=== PATIENT | female | born 1970 | race Caucasian/White ===

== ENCOUNTER 2022-04-13 07:17 | Observation (INO) | payer BC ==
[~2022-04-13 07:17] MED LIST: Sensorcaine 0.25% 10 ML ONE
[2022-04-13] MEDS ORDERED: PITRESSIN 20 UNITS IJ ONE (07:19)
[2022-04-13] MEDS ORDERED: Lactated Ringers 1,000 ML IV ONE ×3 (07:41→10:53)
[2022-04-13] MEDS ORDERED: CEFAZOLIN 2 GM-D5W BAG** 2 GM/50 ML ML IV ONE (07:41)
[2022-04-13] MEDS ORDERED: CEFAZOLIN 2 GM-D5W BAG** 2 GM/50 ML ML IV SCH (08:00)
[2022-04-13] MEDS ORDERED: Lactated Ringers 1,000 ML IV SCH (08:00)
[2022-04-13 08:13] LABS: Absolute Neutrophil Ct (ANC) 3.05 x10^3/uL (1.4-6.9); BASOPHIL % 0.6 % (0.0-0.4); Basophil (Absolute #) 0.04 x10^3/uL (0-0.4); Eosinophil % 1.3 % (0.00-5.0); Eosinophil (Absolute #) 0.08 x10^3/uL (0-0.5); Hemoglobin 13.1 g/dL (12.0-16.0); IMMATURE GRAN # 0.01 x10^3u/L (0.00-0.03); IMMATURE GRAN % 0.2 % (0.00-0.4); Lymphocyte (Absolute #) 2.31 x10^3/uL (1.0-4.6); Lymphocytes % 36.9 % (24.0-44.0); Mean Cell Volume 87.9 fL (78-100); Mean Corpuscular Hemoglobin 28.8 pg (26-32); Mean Corpuscular Hgb Concent. 32.8 g/dL (32-36); Mean Platelet Volume 10.2 fL (7.5-11.0); Monocyte (Absolute #) 0.77 x10^3/uL (0.0-1.3); Monocytes % 12.3 % (0.0-12.0); Neutrophil % 48.7 % (36.0-66.0); Platelet Count 317 x10^3/uL (150-450); Red Blood Count 4.55 x10^6/uL (4.1-5.4); Red Cell Distribution Width 13.4 % (11.5-14.0); White Blood Count 6.3 x10^3/uL (4.0-10.5)
[2022-04-13 08:23] LABS: ALBUMIN 4.6 g/dL (3.5-5.0); ALKALINE PHOSPHATASE 59 U/L (38-126); ANION GAP 11.9 MEQ/L (5-15); BLOOD UREA NITROGEN 24 mg/dL (7-17); CHLORIDE 108 mmol/L (98-107); Calcium 8.9 mg/dL (8.4-10.2); Carbon Dioxide 26 mmol/L (22-30); Creatinine 1 0.67 mg/dL (0.52-1.04); EST GLOMERULAR FILTRATION RATE > 60.0 ML/MIN; Glucose 104 mg/dL (74-106); Potassium 3.7 mmol/L (3.5-5.1); SGOT/AST 47 U/L (14-36); SGPT/ALT 41 U/L (0-35); SODIUM 142 mmol/L (137-145); Total Protein 8.6 g/dL (6.3-8.2)
[2022-04-13] MEDS ORDERED: Zemuron 100 MG/10 ML ONE (08:41)
[2022-04-13] MEDS ORDERED: Zofran 4 MG/2 ML VIAL ONE (08:41)
[2022-04-13] MEDS ORDERED: DIPRIVAN 200 MG/20 ML IV ONE (08:41)
[2022-04-13] MEDS ORDERED: Decadron 4 MG INJ ONE (08:41)
[2022-04-13] MEDS ORDERED: SUBLIMAZE 100 MCG/2 ML ONE (08:41)
[2022-04-13] MEDS ORDERED: TORAdol 30 mg Injection ONE (08:41)
[2022-04-13] MEDS ORDERED: BRIDION 200MG/2ML IV ONE (08:41)
[2022-04-13] MEDS ORDERED: Xylocaine-Mpf 2% 5 Ml Vial ONE (08:41)
[2022-04-13] MEDS ORDERED: Versed 2 MG/2 ML Injection ONE (08:41)
[2022-04-13 08:45] LABS: INFLUENZA A NEGATIVE (NEGATIVE); INFLUENZA B NEGATIVE (NEGATIVE); RESPIRATORY SYNCTIAL VIRUS NEGATIVE (Negative); SARS-CoV-2 Xpert Express NEGATIVE (NEGATIVE)
[2022-04-13] MEDS ORDERED: Sodium Chloride 0.9% 100 ML ONE (08:45)
[2022-04-13] MEDS ORDERED: Magnesium Sulfate 1 GM/2 ML VIAL ONE (08:47)
[2022-04-13] MEDS ORDERED: OFIRMEV 100 ML IV ONE (08:48)
[2022-04-13] MEDS ORDERED: Astramorph-Pf 5 MG/10 ML ONE (08:49)
[2022-04-13 08:50] LABS: ABO TYPING B; Antibody Screen NEGATIVE (NEGATIVE); RH TYPING POSITIVE
[2022-04-13] MEDS ORDERED: PHENYLEPHRINE HCL ONE (09:15)
[2022-04-13] MEDS ORDERED: Ketamine HCl 50 MG/ML ONE (09:26)
[2022-04-13] MEDS ORDERED: Ephedrine Sulfate 50 MG/ML ONE (09:32)
[2022-04-13] MEDS ORDERED: XYLOCAINE 1%/Epi 1:100000 MDV 20 ML ONE (09:33)
[2022-04-13] MEDS ORDERED: Zofran 4 MG/2 ML VIAL IV PRN ×2 (13:44→19:30)
[2022-04-13] MEDS ORDERED: TORAdol 30 mg Injection IV PRN (13:46)
[2022-04-13] MEDS ORDERED: MEDICATION INTERVENTION MC SCH (14:00)
[2022-04-13] MEDS: CEFAZOLIN 2 GM-D5W BAG** 2 GM/50 ML ML IV SCH ×2 (14:12→22:38)
[2022-04-13] MEDS: hydroDIURIL 25 MG PO SCH (14:14)
[2022-04-13] MEDS: Mylicon 80MG PO SCH ×2 (14:14→22:38)
[2022-04-13] MEDS: Zestril 20 MG PO SCH (14:14)
[2022-04-13] MEDS: Docusate Sodium 100 MG PO SCH ×2 (14:14→22:38)
[2022-04-13] MEDS: Reglan 10 MG/2 ML IV SCH ×2 (14:15→22:39)
[2022-04-13 14:39] LABS: Appearance Clear (Clear); Bacteria None Seen /HPF (None Seen); Bilirubin Negative (Negative); Blood Moderate (Negative); Epithelial Cells Rare /HPF (None Seen); Glucose, Urine Negative (Negative); Ketones Negative (Negative); Leukocyte Esterase Negative (Negative); Nitrite Negative (Negative); Ph 5.5 (4.6-8.0); Protein,Urine Dip Trace (Negative); Specific Gravity 1.025 (1.005-1.030); Urobilinogen 0.2 mg/dL (0.2)
--- NOTE | 2022-04-13 16:24 | XRAY ---
Indication: Status post hysterectomy. Ureteral patency. Multiple contiguous axial images obtained through the abdomen and pelvis using 80 cc Isovue 370 contrast. Comparison: None Lung bases demonstrates mild dependent atelectasis. Heart not enlarged. Abdominal wall demonstrates mild diffuse subcutaneous emphysema presumably related to recent surgery. No focal abdominal wall mass or abnormal fluid collection. Stomach is mildly fluid distended. Noncontrasted stomach and bowel loops appear nonobstructed. Mild diffuse scattered colonic fecal debris throughout including rectum. Hysterectomy with small postoperative pelvic free fluid/tiny free air. Urinary bladder demonstrates Thacker balloon catheter in situ with small intraluminal air. Delayed images are negative for abnormal contrast extravasation. Incidental fatty liver with a few tiny hepatic/splenic calcified granulomas. Gallbladder moderately distended without gallstones. Remaining liver, gallbladder, pancreas, spleen, adrenal glands, kidneys, ureters, and bladder are unremarkable. Minimal aortoiliac calcifications. No AAA or pathological retroperitoneal lymphadenopathy. Osseous structures intact with minimal generative changes throughout the spine. Impression: 1. Postoperative changes related to hysterectomy including diffuse abdominal subcutaneous emphysema, small pelvic free fluid, and tiny intra-abdominal air. 2. Both ureters are normal in course and caliber without abnormal extravasation. 3. Incidental mild diffuse fecal stasis, distended gallbladder, fatty liver, and old granulomatous disease.
[2022-04-13 18:20] LABS: Hematocrit 31.1 % (35-47); Hemoglobin 10.3 g/dL (12.0-16.0); Mean Cell Volume 89.1 fL (78-100); Mean Corpuscular Hemoglobin 29.5 pg (26-32); Mean Corpuscular Hgb Concent. 33.1 g/dL (32-36); Mean Platelet Volume 10.1 fL (7.5-11.0); Platelet Count 287 x10^3/uL (150-450); Red Blood Count 3.49 x10^6/uL (4.1-5.4); Red Cell Distribution Width 13.5 % (11.5-14.0); White Blood Count 16.8 x10^3/uL (4.0-10.5)
[2022-04-13] MEDS: Lactated Ringers 1,000 ML IV SCH (18:28)
[2022-04-13] MEDS ORDERED: Zofran 4 MG/2 ML VIAL IV STA (19:27)
[2022-04-14] MEDS: Lactated Ringers 1,000 ML IV SCH (02:37)
[2022-04-14 05:21] LABS: Hematocrit 28.5 % (35-47); Hemoglobin 9.2 g/dL (12.0-16.0); Mean Cell Volume 89.6 fL (78-100); Mean Corpuscular Hemoglobin 28.9 pg (26-32); Mean Corpuscular Hgb Concent. 32.3 g/dL (32-36); Mean Platelet Volume 10.2 fL (7.5-11.0); Platelet Count 288 x10^3/uL (150-450); Red Blood Count 3.18 x10^6/uL (4.1-5.4); Red Cell Distribution Width 13.5 % (11.5-14.0); White Blood Count 10.5 x10^3/uL (4.0-10.5)
[2022-04-14] MEDS: Reglan 10 MG/2 ML IV SCH (05:23)
[2022-04-14] MEDS: Mylicon 80MG PO SCH (05:23)
[2022-04-14 06:25] LABS: ALBUMIN 3.3 g/dL (3.5-5.0); ALKALINE PHOSPHATASE 45 U/L (38-126); ANION GAP 8.3 MEQ/L (5-15); BLOOD UREA NITROGEN 16 mg/dL (7-17); CHLORIDE 103 mmol/L (98-107); Calcium 8.1 mg/dL (8.4-10.2); Carbon Dioxide 30 mmol/L (22-30); Creatinine 1 0.65 mg/dL (0.52-1.04); EST GLOMERULAR FILTRATION RATE > 60.0 ML/MIN; Glucose 111 mg/dL (74-106); Potassium 3.7 mmol/L (3.5-5.1); SGOT/AST 24 U/L (14-36); SGPT/ALT 27 U/L (0-35); SODIUM 138 mmol/L (137-145); Total Protein 6.3 g/dL (6.3-8.2)
--- NOTE | 2022-04-14 07:45 | PCM.NOTE ---
Date and Time: 04/14/22743 Subjective Assessment: pod 1 sp lavh pt resting in bed and doing well. able to ambulate and tolerate diet. vss afebrile abd; soft incision c/d/intact pelvic; vaginal packing removed with minimal soiling hgb; 9.2 stable a/p sp lavh pod 1 dc home today should fu in office in 2 wks OBJECTIVE DATA Vital Signs: Vital Signs - 24 hr Temp Pulse Resp BP Pulse Ox 04/14/22 07:15 97.2 F 71 17 113/61 100 04/14/22 06:57 100 04/14/22 04:00 97.6 F 53 L 18 106/57 100 04/13/22 23:40 98.1 F 60 16 101/58 99 04/13/22 15:24 98.7 F 72 17 138/76 96 04/13/22 15:23 98.6 F 77 16 142/73 97 04/13/22 14:42 96 04/13/22 14:15 98.6 F 77 16 142/73 97 04/13/22 14:00 98.7 F 69 15 149/87 97 04/13/22 13:35 98.6 F 70 16 145/75 98 04/13/22 13:20 98.6 F 88 16 143/91 98 04/13/22 13:00 98.6 F 70 16 138/76 98 04/13/22 12:30 98.6 F 94 H 16 152/90 99 04/13/22 12:15 98.7 F 83 16 139/84 93 L 04/13/22 12:00 98.7 F 73 16 149/87 98 04/13/22 08:07 97.7 F 79 18 134/83 97 04/13/22 07:50 97.7 F 79 18 134/83 97 Pain Assessment - Last Documented Pain Intensity 0 Pain Scale Used 0-10 Pain Scale Intake and Output: Intake & Output 04/11/22 04/12/22 04/13/22 04/14/22 11:59 11:59 11:59 11:59 Intake Total 4176 Output Total 2250 Balance 1926 Weight 74.5 kg 74.5 kg Lab Results: Lab Results-Last 24 Hours 04/13/22 04/13/22 04/13/22 Range/Units 07:58 07:58 07:58 WBC 6.3 (4.0-10.5) x10^3/uL RBC 4.55 (4.1-5.4) x10^6/uL Hgb 13.1 (12.0-16.0) g/dL Hct 40.0 (35-47) % MCV 87.9 (78-100) fL MCH 28.8 (26-32) pg MCHC 32.8 (32-36) g/dL RDW 13.4 (11.5-14.0) % Plt Count 317 (150-450) x10^3/uL MPV 10.2 (7.5-11.0) fL Gran % 48.7 (36.0-66.0) % Immature Gran % (Auto) 0.2 (0.00-0.4) % Nucleat RBC Rel Count 0.0 (0.00-0.1) % Eos # (Auto) 0.08 (0-0.5) x10^3/uL Immature Gran # (Auto) 0.01 (0.00-0.03) x10^3u/L Absolute Lymphs (auto) 2.31 (1.0-4.6) x10^3/uL Absolute Monos (auto) 0.77 (0.0-1.3) x10^3/uL Absolute Nucleated RBC 0.00 (0.00-0.01) x10^3u/L Lymphocytes % 36.9 (24.0-44.0) % Monocytes % 12.3 H (0.0-12.0) % Eosinophils % 1.3 (0.00-5.0) % Basophils % 0.6 (0.0-0.4) % Absolute Granulocytes 3.05 (1.4-6.9) x10^3/uL Basophils # 0.04 (0-0.4) x10^3/uL Sodium 142 (137-145) mmol/L Potassium 3.7 (3.5-5.1) mmol/L Chloride 108 H (98-107) mmol/L Carbon Dioxide 26 (22-30) mmol/L Anion Gap 11.9 (5-15) MEQ/L BUN 24 H (7-17) mg/dL Creatinine 0.67 (0.52-1.04) mg/dL Estimated GFR > 60.0 ML/MIN Glucose 104 (74-106) mg/dL Calcium 8.9 (8.4-10.2) mg/dL Total Bilirubin 0.70 (0.2-1.3) mg/dL AST 47 H (14-36) U/L ALT 41 H (0-35) U/L Alkaline Phosphatase 59 (38-126) U/L Serum Total Protein 8.6 H (6.3-8.2) g/dL Albumin 4.6 (3.5-5.0) g/dL Urine Color (Yellow) Urine Appearance (Clear) Urine pH (4.6-8.0) Ur Specific [place] (1.005-1.030) Urine Protein (Negative) Urine Glucose (UA) (Negative) mg/dL Urine Ketones (Negative) Urine Blood (Negative) Urine Nitrite (Negative) Urine Bilirubin (Negative) Urine Urobilinogen (0.2) mg/dL Ur Leukocyte Esterase (Negative) U Hyaline Cast (Auto) (0-2) /LPF Urine Microscopic RBC (0-5) /HPF Urine Microscopic WBC (0-5) /HPF Ur Epithelial Cells (None Seen) /HPF Urine Bacteria (None Seen) /HPF Influenza Type A Ag (NEGATIVE) Influenza Type B Ag (NEGATIVE) RSV (PCR) (Negative) SARS-CoV-2 (PCR) (NEGATIVE) ABO Group B Rh Factor POSITIVE Antibody Screen NEGATIVE (NEGATIVE) 04/13/22 04/13/22 04/13/22 Range/Units 08:04 09:29 18:15 WBC 16.8 H (4.0-10.5) x10^3/uL RBC 3.49 L (4.1-5.4) x10^6/uL Hgb 10.3 L D (12.0-16.0) g/dL Hct 31.1 L (35-47) % MCV 89.1 (78-100) fL MCH 29.5 (26-32) pg MCHC 33.1 (32-36) g/dL RDW 13.5 (11.5-14.0) % Plt Count 287 (150-450) x10^3/uL MPV 10.1 (7.5-11.0) fL Gran % (36.0-66.0) % Immature Gran % (Auto) (0.00-0.4) % Nucleat RBC Rel Count (0.00-0.1) % Eos # (Auto) (0-0.5) x10^3/uL Immature Gran # (Auto) (0.00-0.03) x10^3u/L Absolute Lymphs (auto) (1.0-4.6) x10^3/uL Absolute Monos (auto) (0.0-1.3) x10^3/uL Absolute Nucleated RBC (0.00-0.01) x10^3u/L Lymphocytes % (24.0-44.0) % Monocytes % (0.0-12.0) % Eosinophils % (0.00-5.0) % Basophils % (0.0-0.4) % Absolute Granulocytes (1.4-6.9) x10^3/uL Basophils # (0-0.4) x10^3/uL Sodium (137-145) mmol/L Potassium (3.5-5.1) mmol/L Chloride (98-107) mmol/L Carbon Dioxide (22-30) mmol/L Anion Gap (5-15) MEQ/L BUN (7-17) mg/dL Creatinine (0.52-1.04) mg/dL Estimated GFR ML/MIN Glucose (74-106) mg/dL Calcium (8.4-10.2) mg/dL Total Bilirubin (0.2-1.3) mg/dL AST (14-36) U/L ALT (0-35) U/L Alkaline Phosphatase (38-126) U/L Serum Total Protein (6.3-8.2) g/dL Albumin (3.5-5.0) g/dL Urine Color Yellow (Yellow) Urine Appearance Clear (Clear) Urine pH 5.5 (4.6-8.0) Ur Specific [place] 1.025 (1.005-1.030) Urine Protein Trace A (Negative) Urine Glucose (UA) Negative (Negative) mg/dL Urine Ketones Negative (Negative) Urine Blood Moderate A (Negative) Urine Nitrite Negative (Negative) Urine Bilirubin Negative (Negative) Urine Urobilinogen 0.2 (0.2) mg/dL Ur Leukocyte Esterase Negative (Negative) U Hyaline Cast (Auto) 3-5 A (0-2) /LPF Urine Microscopic RBC 11-20 A (0-5) /HPF Urine Microscopic WBC 6-10 A (0-5) /HPF Ur Epithelial Cells Rare (None Seen) /HPF Urine Bacteria None Seen (None Seen) /HPF Influenza Type A Ag NEGATIVE (NEGATIVE) Influenza Type B Ag NEGATIVE (NEGATIVE) RSV (PCR) NEGATIVE (Negative) SARS-CoV-2 (PCR) NEGATIVE (NEGATIVE) ABO Group Rh Factor Antibody Screen (NEGATIVE) 04/14/22 04/14/22 Range/Units 05:21 05:21 WBC 10.5 (4.0-10.5) x10^3/uL RBC 3.18 L (4.1-5.4) x10^6/uL Hgb 9.2 L (12.0-16.0) g/dL Hct 28.5 L (35-47) % MCV 89.6 (78-100) fL MCH 28.9 (26-32) pg MCHC 32.3 (32-36) g/dL RDW 13.5 (11.5-14.0) % Plt Count 288 (150-450) x10^3/uL MPV 10.2 (7.5-11.0) fL Gran % (36.0-66.0) % Immature Gran % (Auto) (0.00-0.4) % Nucleat RBC Rel Count (0.00-0.1) % Eos # (Auto) (0-0.5) x10^3/uL Immature Gran # (Auto) (0.00-0.03) x10^3u/L Absolute Lymphs (auto) (1.0-4.6) x10^3/uL Absolute Monos (auto) (0.0-1.3) x10^3/uL Absolute Nucleated RBC (0.00-0.01) x10^3u/L Lymphocytes % (24.0-44.0) % Monocytes % (0.0-12.0) % Eosinophils % (0.00-5.0) % Basophils % (0.0-0.4) % Absolute Granulocytes (1.4-6.9) x10^3/uL Basophils # (0-0.4) x10^3/uL Sodium 138 (137-145) mmol/L Potassium 3.7 (3.5-5.1) mmol/L Chloride 103 (98-107) mmol/L Carbon Dioxide 30 (22-30) mmol/L Anion Gap 8.3 (5-15) MEQ/L BUN 16 (7-17) mg/dL Creatinine 0.65 (0.52-1.04) mg/dL Estimated GFR > 60.0 ML/MIN Glucose 111 H (74-106) mg/dL Calcium 8.1 L (8.4-10.2) mg/dL Total Bilirubin 0.30 (0.2-1.3) mg/dL AST 24 (14-36) U/L ALT 27 (0-35) U/L Alkaline Phosphatase 45 (38-126) U/L Serum Total Protein 6.3 (6.3-8.2) g/dL Albumin 3.3 L (3.5-5.0) g/dL Urine Color (Yellow) Urine Appearance (Clear) Urine pH (4.6-8.0) Ur Specific [place] (1.005-1.030) Urine Protein (Negative) Urine Glucose (UA) (Negative) mg/dL Urine Ketones (Negative) Urine Blood (Negative) Urine Nitrite (Negative) Urine Bilirubin (Negative) Urine Urobilinogen (0.2) mg/dL Ur Leukocyte Esterase (Negative) U Hyaline Cast (Auto) (0-2) /LPF Urine Microscopic RBC (0-5) /HPF Urine Microscopic WBC (0-5) /HPF Ur Epithelial Cells (None Seen) /HPF Urine Bacteria (None Seen) /HPF Influenza Type A Ag (NEGATIVE) Influenza Type B Ag (NEGATIVE) RSV (PCR) (Negative) SARS-CoV-2 (PCR) (NEGATIVE) ABO Group Rh Factor Antibody Screen (NEGATIVE) Radiology Exams: Radiology Procedures Category Date Time Status ABDOMEN AND PELVIS W CONTRAST [CT] Stat Exams 04/13/22 14:39 Completed Multi-Disciplinary Progress Notes: Multi-Disciplinary Progress Notes 04/13/22 18:32 Respiratory Note by Sidra Garduno PT INSTRUCTED ON SDC. Initialized on 04/13/22 18:32 - END OF NOTE Assessment/Plan (1) S/P laparoscopic assisted vaginal hysterectomy (LAVH) Current Visit: Yes Status: Acute Code(s): Z90.710 - ACQUIRED ABSENCE OF BOTH CERVIX AND UTERUS
--- NOTE | 2022-04-14 07:51 | PCM.DS ---
Discharge Summary Date of Admission: 04/13/22 07:18 Admitting Physician: CHE JOHN DO Primary Care Provider: JUANA CHRISTOPHER Allergies Allergies No Known Drug Allergies Allergy (Unverified 03/31/22 07:17) Hospital Summary - Hospital Course Hospital Course: pt admitted on april 13 for undergoing laparoscopic vaginal hysterectomy for uterine prolapse and underwent procedure without complication. pt had been scheduled for anterior repair however during surgical procedure after uterus removed it was noted cystocele receded and was only minimimally noted. pt was noted having mild rectocele during procedure. pt during postop period did well was able to ambulate and tolerate diet. pt was given rx for norco for pain management and was advised to fu in office in 2 wks for postop check. all questions answered to her satisfaction. - Vitals & Intake/Output Vital Signs: Vital Signs Temperature 97.2 F 04/14/22 07:15 Pulse Rate 71 04/14/22 07:15 Respiratory Rate 17 04/14/22 07:15 Blood Pressure 113/61 04/14/22 07:15 O2 Sat by Pulse Oximetry 100 04/14/22 07:15 Intake & Output: Intake & Output 04/11/22 04/12/22 04/13/22 04/14/22 11:59 11:59 11:59 11:59 Intake Total 4176 Output Total 2250 Balance 1926 Weight 74.5 kg 74.5 kg - Lab Result Diagrams: 04/14/22 05:21 04/14/22 05:21 Lab Results-Last 24 Hrs: Lab Results-Last 24 Hours 04/13/22 04/13/22 04/13/22 Range/Units 07:58 07:58 07:58 WBC 6.3 (4.0-10.5) x10^3/uL RBC 4.55 (4.1-5.4) x10^6/uL Hgb 13.1 (12.0-16.0) g/dL Hct 40.0 (35-47) % MCV 87.9 (78-100) fL MCH 28.8 (26-32) pg MCHC 32.8 (32-36) g/dL RDW 13.4 (11.5-14.0) % Plt Count 317 (150-450) x10^3/uL MPV 10.2 (7.5-11.0) fL Gran % 48.7 (36.0-66.0) % Immature Gran % (Auto) 0.2 (0.00-0.4) % Nucleat RBC Rel Count 0.0 (0.00-0.1) % Eos # (Auto) 0.08 (0-0.5) x10^3/uL Immature Gran # (Auto) 0.01 (0.00-0.03) x10^3u/L Absolute Lymphs (auto) 2.31 (1.0-4.6) x10^3/uL Absolute Monos (auto) 0.77 (0.0-1.3) x10^3/uL Absolute Nucleated RBC 0.00 (0.00-0.01) x10^3u/L Lymphocytes % 36.9 (24.0-44.0) % Monocytes % 12.3 H (0.0-12.0) % Eosinophils % 1.3 (0.00-5.0) % Basophils % 0.6 (0.0-0.4) % Absolute Granulocytes 3.05 (1.4-6.9) x10^3/uL Basophils # 0.04 (0-0.4) x10^3/uL Sodium 142 (137-145) mmol/L Potassium 3.7 (3.5-5.1) mmol/L Chloride 108 H (98-107) mmol/L Carbon Dioxide 26 (22-30) mmol/L Anion Gap 11.9 (5-15) MEQ/L BUN 24 H (7-17) mg/dL Creatinine 0.67 (0.52-1.04) mg/dL Estimated GFR > 60.0 ML/MIN Glucose 104 (74-106) mg/dL Calcium 8.9 (8.4-10.2) mg/dL Total Bilirubin 0.70 (0.2-1.3) mg/dL AST 47 H (14-36) U/L ALT 41 H (0-35) U/L Alkaline Phosphatase 59 (38-126) U/L Serum Total Protein 8.6 H (6.3-8.2) g/dL Albumin 4.6 (3.5-5.0) g/dL Urine Color (Yellow) Urine Appearance (Clear) Urine pH (4.6-8.0) Ur Specific [place] (1.005-1.030) Urine Protein (Negative) Urine Glucose (UA) (Negative) mg/dL Urine Ketones (Negative) Urine Blood (Negative) Urine Nitrite (Negative) Urine Bilirubin (Negative) Urine Urobilinogen (0.2) mg/dL Ur Leukocyte Esterase (Negative) U Hyaline Cast (Auto) (0-2) /LPF Urine Microscopic RBC (0-5) /HPF Urine Microscopic WBC (0-5) /HPF Ur Epithelial Cells (None Seen) /HPF Urine Bacteria (None Seen) /HPF Influenza Type A Ag (NEGATIVE) Influenza Type B Ag (NEGATIVE) RSV (PCR) (Negative) SARS-CoV-2 (PCR) (NEGATIVE) ABO Group B Rh Factor POSITIVE Antibody Screen NEGATIVE (NEGATIVE) 04/13/22 04/13/22 04/13/22 Range/Units 08:04 09:29 18:15 WBC 16.8 H (4.0-10.5) x10^3/uL RBC 3.49 L (4.1-5.4) x10^6/uL Hgb 10.3 L D (12.0-16.0) g/dL Hct 31.1 L (35-47) % MCV 89.1 (78-100) fL MCH 29.5 (26-32) pg MCHC 33.1 (32-36) g/dL RDW 13.5 (11.5-14.0) % Plt Count 287 (150-450) x10^3/uL MPV 10.1 (7.5-11.0) fL Gran % (36.0-66.0) % Immature Gran % (Auto) (0.00-0.4) % Nucleat RBC Rel Count (0.00-0.1) % Eos # (Auto) (0-0.5) x10^3/uL Immature Gran # (Auto) (0.00-0.03) x10^3u/L Absolute Lymphs (auto) (1.0-4.6) x10^3/uL Absolute Monos (auto) (0.0-1.3) x10^3/uL Absolute Nucleated RBC (0.00-0.01) x10^3u/L Lymphocytes % (24.0-44.0) % Monocytes % (0.0-12.0) % Eosinophils % (0.00-5.0) % Basophils % (0.0-0.4) % Absolute Granulocytes (1.4-6.9) x10^3/uL Basophils # (0-0.4) x10^3/uL Sodium (137-145) mmol/L Potassium (3.5-5.1) mmol/L Chloride (98-107) mmol/L Carbon Dioxide (22-30) mmol/L Anion Gap (5-15) MEQ/L BUN (7-17) mg/dL Creatinine (0.52-1.04) mg/dL Estimated GFR ML/MIN Glucose (74-106) mg/dL Calcium (8.4-10.2) mg/dL Total Bilirubin (0.2-1.3) mg/dL AST (14-36) U/L ALT (0-35) U/L Alkaline Phosphatase (38-126) U/L Serum Total Protein (6.3-8.2) g/dL Albumin (3.5-5.0) g/dL Urine Color Yellow (Yellow) Urine Appearance Clear (Clear) Urine pH 5.5 (4.6-8.0) Ur Specific [place] 1.025 (1.005-1.030) Urine Protein Trace A (Negative) Urine Glucose (UA) Negative (Negative) mg/dL Urine Ketones Negative (Negative) Urine Blood Moderate A (Negative) Urine Nitrite Negative (Negative) Urine Bilirubin Negative (Negative) Urine Urobilinogen 0.2 (0.2) mg/dL Ur Leukocyte Esterase Negative (Negative) U Hyaline Cast (Auto) 3-5 A (0-2) /LPF Urine Microscopic RBC 11-20 A (0-5) /HPF Urine Microscopic WBC 6-10 A (0-5) /HPF Ur Epithelial Cells Rare (None Seen) /HPF Urine Bacteria None Seen (None Seen) /HPF Influenza Type A Ag NEGATIVE (NEGATIVE) Influenza Type B Ag NEGATIVE (NEGATIVE) RSV (PCR) NEGATIVE (Negative) SARS-CoV-2 (PCR) NEGATIVE (NEGATIVE) ABO Group Rh Factor Antibody Screen (NEGATIVE) 04/14/22 04/14/22 Range/Units 05:21 05:21 WBC 10.5 (4.0-10.5) x10^3/uL RBC 3.18 L (4.1-5.4) x10^6/uL Hgb 9.2 L (12.0-16.0) g/dL Hct 28.5 L (35-47) % MCV 89.6 (78-100) fL MCH 28.9 (26-32) pg MCHC 32.3 (32-36) g/dL RDW 13.5 (11.5-14.0) % Plt Count 288 (150-450) x10^3/uL MPV 10.2 (7.5-11.0) fL Gran % (36.0-66.0) % Immature Gran % (Auto) (0.00-0.4) % Nucleat RBC Rel Count (0.00-0.1) % Eos # (Auto) (0-0.5) x10^3/uL Immature Gran # (Auto) (0.00-0.03) x10^3u/L Absolute Lymphs (auto) (1.0-4.6) x10^3/uL Absolute Monos (auto) (0.0-1.3) x10^3/uL Absolute Nucleated RBC (0.00-0.01) x10^3u/L Lymphocytes % (24.0-44.0) % Monocytes % (0.0-12.0) % Eosinophils % (0.00-5.0) % Basophils % (0.0-0.4) % Absolute Granulocytes (1.4-6.9) x10^3/uL Basophils # (0-0.4) x10^3/uL Sodium 138 (137-145) mmol/L Potassium 3.7 (3.5-5.1) mmol/L Chloride 103 (98-107) mmol/L Carbon Dioxide 30 (22-30) mmol/L Anion Gap 8.3 (5-15) MEQ/L BUN 16 (7-17) mg/dL Creatinine 0.65 (0.52-1.04) mg/dL Estimated GFR > 60.0 ML/MIN Glucose 111 H (74-106) mg/dL Calcium 8.1 L (8.4-10.2) mg/dL Total Bilirubin 0.30 (0.2-1.3) mg/dL AST 24 (14-36) U/L ALT 27 (0-35) U/L Alkaline Phosphatase 45 (38-126) U/L Serum Total Protein 6.3 (6.3-8.2) g/dL Albumin 3.3 L (3.5-5.0) g/dL Urine Color (Yellow) Urine Appearance (Clear) Urine pH (4.6-8.0) Ur Specific [place] (1.005-1.030) Urine Protein (Negative) Urine Glucose (UA) (Negative) mg/dL Urine Ketones (Negative) Urine Blood (Negative) Urine Nitrite (Negative) Urine Bilirubin (Negative) Urine Urobilinogen (0.2) mg/dL Ur Leukocyte Esterase (Negative) U Hyaline Cast (Auto) (0-2) /LPF Urine Microscopic RBC (0-5) /HPF Urine Microscopic WBC (0-5) /HPF Ur Epithelial Cells (None Seen) /HPF Urine Bacteria (None Seen) /HPF Influenza Type A Ag (NEGATIVE) Influenza Type B Ag (NEGATIVE) RSV (PCR) (Negative) SARS-CoV-2 (PCR) (NEGATIVE) ABO Group Rh Factor Antibody Screen (NEGATIVE) - Radiology Exams Ordered Rad Exams-Entire Visit: Radiology Procedures Category Date Time Status ABDOMEN AND PELVIS W CONTRAST [CT] Stat Exams 04/13/22 14:39 Completed - Procedures and Test Procedures and Tests throughout Hospitalization: Therapy Orders & Screens 04/13/22 12:39 Incentive Spirometry TID Comment: Diagnosis: abnormal uterine bleeding,uterine prolaspe,cytocle 04/13/22 14:41 Oxygen Nasal Cannula 2 lpm Comment: Diagnosis: abnormal uterine bleeding,uterine prolaspe,cytocle Final Diagnosis/Problem List - Final Discharge Diagnosis/Problem (1) S/P laparoscopic assisted vaginal hysterectomy (LAVH) Current Visit: Yes Status: Acute Code(s): Z90.710 - ACQUIRED ABSENCE OF BOTH CERVIX AND UTERUS - Discharge Disposition: Home, Self-Care Condition: Stable Prescriptions: New Hydrocodone/Acetaminophen [Hydrocodone-Acetamin 5-325 mg] 1 tab PO Q6HPRN PRN #20 tablet MDD 4 PRN Reason: Pain Hydrocodone/Acetaminophen [Hydrocodone-Acetamin 7.5-325] 1 each PO Q6HPRN PRN #20 tablet MDD 4 PRN Reason: Pain No Action Lisinopril/Hydrochlorothiazide [Lisinopril-Hctz 20-25 mg Tab] 1 each PO DAILY Phentermine HCl 37.5 mg PO DAILY Follow up with: JUANA CHRISTOPHER [Primary Care Provider] - CHE JOHN DO [ACTIVE STAFF] - 04/28/22 10:15 am (no heavy lifting nothing per vagina for 6 wks )
[2022-04-14] MEDS ORDERED: ENOXAPARIN SODIUM SQ SCH (08:00)
[2022-04-14] MEDS: Zestril 20 MG PO SCH (08:51)
[2022-04-14] MEDS: hydroDIURIL 25 MG PO SCH (08:51)
[2022-04-14] MEDS: Docusate Sodium 100 MG PO SCH (08:52)
[2022-04-14] MEDS ORDERED: NON-FORMULARY ITEM (Lisinopril/Hydrochlorothiazide [Lisinopril-Hctz 20-25 Mg Tab] 1 EACH T PO SCH (10:00)
[2022-04-14] MEDS ORDERED: PHENTERMINE HCL 37.5 MG PO SCH (10:00)
[2022-04-14 11:30] VITALS: BP 121/60; PULSE 84; O2SAT 98
--- NOTE | 2022-04-14 11:40 | OP ---
SURGERY DATE/TIME: 04/13/2022 0900 PREOPERATIVE DIAGNOSIS: Abnormal uterine bleeding with uterine prolapse and cystocele. POSTOPERATIVE DIAGNOSIS: Abnormal uterine bleeding with uterine prolapse and rectocele. PROCEDURE: Laparoscopic-assisted vaginal hysterectomy. SURGEON: Leonel Tovar D.O. FLOOR MECHANIC: Kailey Naylor and Kendal Delvalle, certified surgical technologist. ANESTHESIA: General. ESTIMATED BLOOD LOSS: 600 cc. COMPLICATIONS: None. INDICATIONS: The risks and benefits, indications, alternatives of the procedure were reviewed with the patient prior to the procedure. The patient understood the risk of infection, bleeding, bowel injury, bladder injury, ureteral injury, pelvic infection and thromboembolic disorder associated with the surgery and desires to have the surgery as a possible means to alleviate her current medical condition. DESCRIPTION OF PROCEDURE AND FINDINGS: At this point the patient is taken to the operating room, given general sedation, placed in the dorsal lithotomy position, prepped and draped in the usual sterile fashion. A weighted speculum is then placed in the patient's vagina and the anterior lip of the cervix is grasped with a single tooth tenaculum. From this point a uterine manipulator was then placed in through endocervical region as a means to manipulate the uterus and elevate the uterus. Attention was then turned to the patient's abdomen where a 5 mm skin incision is made approximately 2 cm above the umbilicus where a 5 mm trocar and sleeve were advanced under direct visualization where pneumoperitoneum was obtained with 4 liters of CO2 gas. An additional incision is made on the left middle quadrant region where a 5 mm incision was made and a 5 mm trocar and sleeve were advanced under direct visualization. An additional incision was made in the right middle quadrant region where a 5 mm incision was made and a 5 mm trocar and sleeve were advanced under direct visualization. From this point a survey of the patient's pelvis appeared to be within normal limits. The uterus was elevated and the LigaSure was then used to clamp, coagulate and cut on the utero-ovarian ligament where it was taken down to the round ligament towards the uterine vasculature on its left side. A bladder flap was developed on its side and the uterine vasculature was then clamped, coagulated, cut in two contiguous regions and hemostasis was obtained. The same procedure was performed on the right side where the right utero-ovarian ligament was clamped, coagulated and cut and taken down to the round ligament towards the uterine vasculature where it was skeletonized, clamped, coagulated and cut in two contiguous regions and hemostasis was obtained. A bladder flap was developed on this side. At this point attention was then turned to the patient's pelvic region-vaginal region where at this point a weighted speculum was then placed into the vaginal region and the cervix grasped with Vitaliy clamps. The cervix is then injected circumferentially with 1% lidocaine with epinephrine and was incised with a scalpel. The bladder was dissected off the pubovesical cervical fascia anteriorly with a sponge stick and Metzenbaum scissors. The anterior cul-de-sac was then entered sharply. The same procedure was performed posteriorly and the posterior cul-de-sac entered sharply as well. At this point a Maru clamp was placed over the uterosacral ligaments on either side. These were then transected and suture ligated with 0 Vicryl suture. Again, hemostasis was assured. The Cardinal ligaments were then clamped on both sides, transected and suture ligated in similar fashion. From this point the uterus with the LigaSure was clamped, cut and coagulated and transected again hemostasis was assured until the uterus was then delivered. From this point the pedicles on either side were then suture ligated and hemostasis was obtained. From this point the vaginal cuff angles were closed with figure-of-8 stitches of 0 Vicryl on both sides and transected the ipsilateral Cardinal uterosacral ligament. The remainder of the vaginal cuff was closed with figure-of-8 suture of 0 Vicryl in interrupted fashion. From this point an additional look was made laparoscopically where visualization appeared to be within normal limits. There appeared to be some slight bleeding located on the cul-de-sac and a bipolar instrument was used to coagulate the bleeding tissue and good hemostasis was obtained. After further irrigation, there was no bleeding that noted in the pelvic region. At this point all instruments were removed from the patient's abdominal region and the incision was closed with 4-0 Monocryl suture and hemostasis was obtained. Iodoform gauze was placed into the vaginal region as vaginal packing. At this point it was noted that the patient did have a rectocele. However after removal of the uterus, the previous cystocele receded and was only minimally noted. From this point the patient is then taken out of the dorsal lithotomy position, was taken out of anesthesia and was then taken to recovery room in stable condition. All instruments, laps were accounted for x2.
== END 2022-04-14 12:59 | disposition home or self-care (01) ==
LOC: EDSTATUS 07:17 → MED SURG 07:18
PROVIDERS: ADMIT Obstetrics & Gynecology; ATTEND Obstetrics & Gynecology
DX: N93.9 Abnormal uterine and vaginal bleeding, unspecified (principal); N81.4 Uterovaginal prolapse, unspecified; Z20.828 Contact with and (suspected) exposure to other viral communicable diseases
CPT/HCPCS: 0241U; 36415; 58550; 74177; 80053; 81001; 81025; 85025; 85027; 86850; 86900; 86901; 87086; 94760; 62322; G0378; J0690; J1100; J1650; J1885; J2250; J2274; J2370; J2405; J2704; J3010; J3475; A9270-GY